=== PATIENT | male | born 1970 | race Two or more races ===

== ENCOUNTER 2019-11-03 17:16 | Emergency (ER) | payer OTHER ==
[~2019-11-03] VITALS: Ht 172.7 cm; Wt 72.6 kg
== END 2019-11-03 20:32 | disposition home or self-care (01) ==
LOC: ER 17:16
DX: K59.09 Other constipation (principal); K62.5 Hemorrhage of anus and rectum
CPT/HCPCS: 74177; Q9965

== ENCOUNTER 2020-04-03 14:47 | Emergency (ER) | payer OTHER ==
[~2020-04-03] VITALS: Ht 172.7 cm; Wt 72.6 kg
[2020-04-03] MEDS ORDERED: DICLOFENAC SODI75 MG PO (17:00)
== END 2020-04-03 17:13 | disposition home or self-care (01) ==
LOC: ER 14:47
DX: G89.11 Acute pain due to trauma (principal); R07.89 Other chest pain